=== PATIENT | male | born 1985 | race Caucasian/White ===

== ENCOUNTER 2017-08-13 10:57 | Emergency (ER) | payer MEDICAID ==
[2017-08-13] MEDS ORDERED: ONDANSETRON 4 MG/2 ML VIAL IVP ONE (11:23)
[2017-08-13] MEDS ORDERED: KETOROLAC 30 MG/1 ML SDV IVP ONE (11:23)
--- NOTE | 2017-08-13 11:26 | EDPHY ---
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 This pain continues has become progressively worse. Nonpleuritic. Reproducible with range of motion. Atraumatic, no direct trauma or fall. No urinary abnormality such as dysuria or hematuria or increased frequency. No testicular pain. PRIMARY CARE PROVIDER: REVIEW OF SYSTEMS: A ten point review of systems was performed and is negative with the exception of the items mentioned in the HPI PAST MEDICAL & SURGICAL HISTORY: No pertinent medical or surgical history SOCIAL HISTORY: Works as an acr[employer]emat PHYSICAL EXAM (Prior to examination, patient consented to physical exam, hands were washed and my usual and customary physical exam procedures followed) 1) GENERAL: Well-developed, well-nourished, alert and oriented. Appears uncomfortable. 2) HEAD: Normocephalic, atraumatic 3) HEENT: Pupils equal, round, reactive to light bilaterally. Sclera anicteric. 4) NECK: Full range of motion, no meningeal signs. 5) LUNGS: Clear auscultation bilaterally, no wheezes, no rhonchi, no retractions. 6) HEART: Regular rate and rhythm, no murmur, no heave, no gallop. 7) ABDOMEN: Guarding left upper quadrant, tender to palpation left upper quadrant, this is also reproducible when he is asked to sit up., 8) MUSCULOSKELETAL: Moving all extremities, no focal areas of tenderness, no obvious trauma. No peripheral edema or discoloration. 9) BACK: No CVA tenderness, no midline vertebral tenderness, no fluctuance, no step-off, no obvious trauma, no visual or palpable abnormality. 10) SKIN: No rash, no petechiae. 11) : Normal male external genitalia bilateral testicles nontender, bilateral cremasteric reflex present.. DIFFERENTIAL DIAGNOSIS: In no particular include but limited to splenic injury , nephrolithiasis, pyelonephritis, hernia, diverticulitis, muscular etiology ([facility]) Constitutional: Initial Vital Signs Temperature (C) 36.6 C 08/13/17 11:07 Heart Rate 70 08/13/17 11:07 Respiratory Rate 20 08/13/17 11:07 O2 Sat (%) 99 08/13/17 11:07 O2 Delivery Mode Room Air Allergies/Adverse Reactions: No Known Allergies Allergy (Verified 12/25/14 08:55) Home Medications: Medication Instructions Recorded Cyclobenzaprine [Flexeril 10 MG 10 mg PO TID #15 tab 08/13/17 (RX)] Ibuprofen 08/13/17 Ibuprofen [Motrin (*)] 800 mg PO Q6 #15 tab 08/13/17 oxyCODONE/APAP 5/325 [Percocet 1 tab PO Q6 #10 tab 08/13/17 5/325] Medical Decision Making - Diagnostics Imaging Results: Images reviewed myself ([facility]) ED Course/Re-evaluation: 1:30 p.m.: The patient was re-evaluated with serial examinations. He notes significant moderation of his symptoms after IV Toradol. I discussed his imaging and diagnostic results. States that he had a last bowel movement earlier today which was normal. He has no evidence of bowel obstruction and no evidence of splenic injury, mono test was obtained which is negative as well. We discussed possible etiologies for symptoms including, but not limited to, acute muscular strain, costochondritis. At this time I do not think that further diagnostic studies are indicated from the emergency department. We discussed analgesia, muscle accident, discussed avoiding concomitant usage of these medications. Recommend follow-up. He feels comfortable being discharged. All questions and concerns addressed by myself. Care of patient under supervision of secondary supervising physician Dr Andres . ([facility]) I did not see this patient while he was in the emergency department. However his care was discussed with the PA while the patient was in the department. I agree with treatment plan and management. IM the secondary supervising physician (Jomar Andres) - Data Points Laboratory Results: Laboratory Results 08/13/17 11:20 08/13/17 11:20 Medications Given: Discontinued Medications Ketorolac Tromethamine (Toradol) 30 mg IVP EDNOW ONE Stop: 08/13/17 11:24 Last Admin: 08/13/17 11:27 Dose: 30 mg Ondansetron HCl (Zofran) 4 mg IVP EDNOW ONE Stop: 08/13/17 11:24 Last Admin: 08/13/17 11:27 Dose: 4 mg Departure - Departure Disposition: Home, Routine, Self-Care Clinical Impression: Constipation, Abdominal pain Condition: Good Instructions: Acute Abdominal Pain (ED) Additional Instructions: Seek immediate medical attention if you develop new or worsening symptoms, if you develop fevers, chills, inability to tolerate oral intake or any other symptoms that concerns you. Referrals: Maya López MD [[facility] [place] Care Provider] - 2-3 days, call for appt. ( Recommend you establish primary care) Prescriptions: Cyclobenzaprine [Flexeril 10 MG (RX)] 10 mg PO TID #15 tab Ibuprofen [Motrin (*)] 800 mg PO Q6 #15 tab oxyCODONE/APAP 5/325 [Percocet 5/325] 1 tab PO Q6 #10 tab
[2017-08-13 11:28] LABS: PLATELET COUNT 185 10^3/uL (150-400)
[2017-08-13] MEDS ORDERED: IOPAMIDOL (ISOVUE-300) 100 ML BTL ONE (12:14)
[2017-08-13 13:57] VITALS: BP 108/76; PULSE 50; RESP 16; TEMP 98.6; O2SAT 98
== END 2017-08-13 14:00 | disposition home or self-care (01) ==
DX: K59.00 Constipation, unspecified (principal)
CPT/HCPCS: 96374; J1885; J2405; Q9967